=== PATIENT | female | born 1935 | race Caucasian/White ===

== ENCOUNTER 2019-09-07 13:54 | Emergency (ER) | payer MEDICARE, SELFPAY ==
[2019-09-07 14:00] VITALS: BP 147/82; PULSE 87; RESP 17; TEMP 37.3; O2SAT 91; BMI 29.2
--- NOTE | 2019-09-07 14:29 | ED_ITS ---
HPI - Skin/Abscess/Foreign Bdy General: Chief complaint: Skin/Abscess/Foreign Body Stated complaint: possible cyst on right leg/groin Time Seen by Provider: 09/07/19 14:29 Source: patient Mode of arrival: ambulatory Limitations: no limitations History of Present Illness: HPI narrative: Patient comes in today for complaints of abscess to the right labia majora area. Patient had an attempt by a clinician at Dr. Vera's office to drain it with minimal success. Patient appears well. Patient appears in no acute distress. Review of Systems General: Reports: 10 or more systems reviewed and unremarkable except in HPI and below Skin/Breast: Reports: other (Abscess right labial majora.) PFSH ED PFSH: Social History Smoking and tobacco status: never smoked Physical Exam Const: COMMON NORMALS: no acute distress and patient oriented x3 GENERAL APPEARANCE: cooperative HENMT: COMMON NORMALS: normocephalic and Normal external nose present HEAD & SCALP: normal to inspection and normocephalic NOSE: Normal external nose present MOUTH: Normal oral and palatal mucosa present Eye: GENERAL EYE: appearance normal, both eyes and all related structures Neck/C-Spine: COMMON NORMALS: full ROM Lymph: LYMPHATIC: no lymphadenopathy noted Chest: COMMONS NORMALS: normal inspection of the chest Resp: COMMON NORMALS: normal respiratory effort EFFORT & INSPECTION: Yes able to speak in complete sentences Cardio: COMMON NORMALS: regular rate and regular rhythm RATE: regular rate RHYTHM: regular rhythm GI: COMMON NORMALS: non-tender Back/Pelvis: COMMON NORMALS: thoracic and lumbar spine normal to inspection Extremity: COMMON NORMALS: normal to inspection Neuro: COMMON NORMALS: patient oriented x3 and moves all extremities Psych: COMMON NORMALS: mental status grossly normal and cooperative Skin: NARRATIVE SKIN EXAM: Contused skin noted to the right labial majora, with significant swelling and tenderness. Procedures Abscess I/D Site: other (right labia majora) Side (if applicable): right Local Anesthetic: lidocaine 1% and with epi Amount of anesthesia used (mL): 10 Technique: incised with #11 blade Amount of fluid expressed (mL): 5 Irrigation: Yes Packing used?: none Complications: pain and bleeding Course Vital Signs: Vital signs: Vital Signs Temperature 99.2 F 09/07/19 14:00 Pulse Rate 87 09/07/19 14:00 Respiratory Rate 17 09/07/19 14:00 Blood Pressure 147/82 09/07/19 14:00 Pulse Oximetry 91 09/07/19 14:00 MDM - Skin/Abscess/Foreign Bdy MDM Narrative: Medical decision making narrative: Patient was sent over by the primary care office for concerns of a abscess to the right labia. Exam notes swelling to the right labial majora with 2 incision lines, significant swelling and bruising is noted to the area. No surrounding area of redness is noted extending up into the groin or perineum or abdomen. Differential diagnosis includes abscess, cellulitis, contusion, necrotizing fasciitis. Under regional block to the perineum a curved Gudelia was used to deloculated abscess further. The loculation was not necessary as abscess was fully expressed on exam. Ultrasound was ordered to investigate further and to assure full abscess expression. Ultrasound noted no further pockets or abscess. Patient was given a dose of Bactrim p.o. and 300 of clindamycin IM. Patient was also given a tablet of hydrocodone for further pain control. Reviewed with patient and her spouse recommendations for follow-up and treatment. They reported understanding and agreed to plan. Discharge Plan Discharge Patient Disposition: Home, Self-Care Clinical Impression: Abscess of skin or subcutaneous tissue Qualifiers: Site of cutaneous abscess: trunk Site of cutaneous abscess of trunk: groin Qualified Code(s): L02.214 - Cutaneous abscess of groin Condition: Stable Prescriptions: New Bactrim DS 800-160 mg tablet 1 tab PO BID 10 Days Qty: 20 RF: 0 hydrocodone-acetaminophen 5-325 mg tablet 1 tab PO Q8H PRN (Reason: pain (scale score 7-10)) Qty: 7 RF: 0 No Action lisinopril 20 mg tablet 20 mg PO BID RF: 0 gabapentin 400 mg capsule 400 mg PO TID RF: 0 amlodipine 2.5 mg tablet 2.5 mg PO DAILY RF: 0 tramadol 50 mg tablet 50 mg PO BID RF: 0 sertraline 50 mg tablet 50 mg PO DAILY RF: 0 rosuvastatin 10 mg tablet 10 mg PO DAILY RF: 0 aspirin 81 mg Tablet,Delayed Release (Dr/Ec) 81 mg PO DAILY RF: 0 Multiple Vitamin, Womens Tablet 1 tab PO DAILY RF: 0 Discharge Orders: Discharge Order (Routine); Ordered 09/07/19 Ordered By: Qamar Delcid Referrals: Reggie Vera MD [Primary Care Provider] - Discharge Diet: Usual diet Discharge Activity: Increase activity as tolerated Patient Instructions: Abscess Incision and Drainage (ED) Activity Restrictions/Additional Instructions: Use warm water soaks or sits baths for comfort. Apply heat pack to the area. Antibiotics as directed. Follow-up with primary care in 1 week. Return to the ER for high fever or worsening symptoms. Coding Level of Care Code ED [employer] for [place] Fwd Exam Comprehensive
--- NOTE | 2019-09-07 15:00 | US_ITS ---
WS: [id number] ULTRASOUND SOFT TISSUES RIGHT labia. HISTORY: abscess, right labia, perineum COMPARISON: None available. TECHNIQUE: 2-D and color Doppler imaging is submitted. There is an edematous area of soft tissue infiltration centered in the RIGHT labia. There is some inc reased peripheral vascularity. This abnormality extends over a length of at least 5 cm. US/US soft tissue/extremity 43135 IMPRESSION: Inflammatory process centered in the RIGHT labia. Favor inflammatory over neopl astic. No focal abscess.
[2019-09-07] MEDS: clindamycin 150 mg/mL SDV 6 mL 300 MG IM (15:21)
[2019-09-07] MEDS: sulfamethoxazole-trimeth DS 160-800 mg Tablet 1 TAB PO (15:21)
[2019-09-07] MEDS: HYDROcodone-acetaminophen 7.5-325 mg Tablet 1 TAB PO (15:21)
[2019-09-07 16:16] VITALS: BP 145/70; PULSE 70; RESP 16; O2SAT 99
== END 2019-09-07 16:17 | disposition home or self-care (01) ==
PROVIDERS: Emergency Provider Nurse Practitioner Family; PCP Family Medicine
DX: L02.214 Cutaneous abscess of groin (principal); Z79.82 Long term (current) use of aspirin
CPT/HCPCS: 12345; 56405; 76882; 96372; 99283; J2001; J3490

== ENCOUNTER → 2020-11-23 15:38 | Outpatient (BNVA) | payer MEDICARE, SELFPAY | PROVIDERS: PCP Family Medicine; Visit Provider Urology | DX: R31.9 Hematuria, unspecified (principal) | CPT/HCPCS: 81003; 88112 ==

== ENCOUNTER 2020-11-29 09:38 | Outpatient (CLI) | payer MEDICARE, SELFPAY ==
--- NOTE | 2020-11-29 10:15 | US_ITS ---
WS: [id number] RENAL ULTRASOUND HISTORY: microscopic hematuria COMPARISON: 09/18/2007 TECHNIQUE: 2-D and color Doppler imaging of the kidney submitted. Right kidney: 10.2 cm x 4.9 cm x 5.3 cm. Normal size kidney. Low normal cortical thickness. No hydronephrosis or mass. Left kidney: 11.1 cm x 4.4 cm x 4.6 cm. LEFT kidney is poorly visualized due to adjacent bowel gas. No hydronephrosis. Aorta: Normal. Urinary Bladder: Normal distention. Heterogeneous echotexture throughout the liver. Surface of the liver is irregular and there are scatt ered areas of decreased echogenicity throughout the liver. US/US renal BI* [id number] IMPRESSION: 1. No hydronephrosis. 2. Abnormal echogenicity throughout the liver. May be related to hepatocellula r disease such as hepatic steatosis. Metastatic lesions cannot be excluded. Rec ommend follow-up CT abdomen and pelvis to better evaluate the liver and also th e LEFT kidney.
== END 2020-11-29 09:39 | disposition home or self-care (01) ==
LOC: RAD 09:43
PROVIDERS: PCP Family Medicine; Visit Provider Urology
DX: R31.29 Other microscopic hematuria (principal)
CPT/HCPCS: 76770; 81003; 87077; 87086; 87184

== ENCOUNTER 2020-12-21 10:06 | Outpatient (CLI) | payer MEDICARE, SELFPAY ==
[2020-12-21 10:47] LABS: Blood Urea Nitrogen 17 mg/dL (8-23)
[2020-12-21] MEDS: iohexol 300 mg/mL 100 mL Btl IV (10:57)
--- NOTE | 2020-12-21 11:00 | CT_ITS ---
WS: [id number] CT scan of the abdomen and pelvis with and without IV contrast. Additional two-dimensional coronal an d sagittal reconstruction was performed. 12/21/2020 Clinical Data: MICROHEMATURIA Comparison: None. DLP: 2302.[address] scans at [facility] use at least one of these dose optimization techniques: automated e xposure control; mA and/or kV adjustment per patient size (includes targeted exams where dose is matc hed to clinical indication); or iterative reconstruction. Findings: The lower lungs show no nodules, masses or effusions. 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 The liver, spleen, adrenal glands and pancreas are normal. There are clips in the gallbladder fossa f rom a cholecystectomy. The left kidney has 2 0.8 cm Central nonobstructing calculi. Right kidney has no calculi. Neither kid gloria has cysts, masses or hydronephrosis. The abdominal aorta is normal in size with calcification in the wall.. No appendicitis or diverticulitis is seen. The stomach, small bowel and colon are unremarkable. No ab scess, adenopathy, ascites, mass, obstruction or free air is seen. The bladder is unremarkable. No inguinal hernia is seen. There is degenerative change of the lower lumbar spine with disc degeneration from L3-L4 to L5-S1. Th ere is an old compression fracture of T12 and vertebroplasty cement in L1. There is deformity of the pubic symphysis from an old injury. CT/CT abdomen pelvis wo/w [id number] Impression: 1. 2 nonobstructing 0.8 cm left renal calculi. 2. Negative for acute intra-abdominal or pelvic abnormalities. 3. 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
== END 2020-12-21 10:07 | disposition home or self-care (01) ==
PROVIDERS: Urology; PCP Family Medicine; Visit Provider Nurse Practitioner Family
DX: R31.29 Other microscopic hematuria (principal); R93.5 Abnormal findings on diagnostic imaging of other abdominal regions, including retroperitoneum; N20.0 Calculus of kidney
CPT/HCPCS: 74178; 81003; 82565; 84520; Q9967